=== PATIENT | male | born 1960 | race Caucasian/White ===

== ENCOUNTER 2023-09-09 12:45 | Inpatient (IN) | payer OTHER ==
[2023-09-09 14:04] VITALS: BMI 23.1
[2023-09-09] MEDS ORDERED: NALOXONE HCL (KLOXXADO) 8 MG SPRAY NS PRN (14:36)
[2023-09-09] MEDS ORDERED: guaiFENesin 600 MG TABLET.ER (FP) PO PRN (14:36)
[2023-09-09] MEDS ORDERED: LOPERAMIDE HCL 2 MG CAPSULE PO PRN (14:36)
[2023-09-09] MEDS ORDERED: BISMUTH SUBSALICYLATE 524 MG/30 ML PO PRN (14:36)
[2023-09-09] MEDS ORDERED: BENZONATATE 200 MG CAPSULE PO PRN (14:36)
[2023-09-09] MEDS ORDERED: NICOTINE POLACRILEX 2 MG GUM BUC PRN (14:36)
[2023-09-09] MEDS ORDERED: POLYETHYLENE GLYCOL (HEALTHYLAX) 3350 17 GM PACKET PO PRN (14:36)
[2023-09-09] MEDS ORDERED: IBUPROFEN 600 MG TABLET (FP) PO PRN (14:36)
[2023-09-09] MEDS ORDERED: IBUPROFEN 400 MG TABLET (FP) PO PRN (14:36)
[2023-09-09] MEDS ORDERED: MAGNESIUM HYDROX 2400MG/30ML ORAL SUSPENSION 30 ML CUP PO PRN (14:36)
[2023-09-09] MEDS ORDERED: BENZOCAINE/MENTHOL (CHLORASEPTIC ) LOZENGE MM PRN (14:36)
[2023-09-09] MEDS ORDERED: NALOXONE HCL 0.4 MG/ML VIAL IM PRN (14:36)
[2023-09-09] MEDS ORDERED: MAG HYDROX/AL HYDROX/SIMETH 30 ML UNIT-DOSE CUP PO PRN (14:36)
[2023-09-09] MEDS ORDERED: ONDANSETRON *ODT* 4 MG TABLET SL PRN (14:36)
[2023-09-09] MEDS ORDERED: ACETAMINOPHEN 325 MG TABLET (FP) PO PRN (14:36)
[2023-09-09] MEDS ORDERED: ALBUTEROL SO4 HFA INHALER IH PRN (15:59)
[2023-09-09] MEDS ORDERED: MELATONIN 5 MG TABLETS PO SCH (22:00)
[2023-09-09] MEDS: THIAMINE HCL 100 MG TABLET (FP) PO SCH (22:27)
[2023-09-10] MEDS ORDERED: MELATONIN 5 MG TABLETS PO ONE (00:58)
[2023-09-10] MEDS: PRENATAL VITAMINS W/ FOLIC ACID TABLET (FP) PO SCH (09:49)
[2023-09-10] MEDS: NICOTINE 14 MG/24 HOURS TOPICAL PATCH TD SCH (09:50)
[2023-09-10] MEDS: methaDONE HCL 40 MG DISPERSABLE TABLET PO SCH (09:51)
[2023-09-10 10:31] LABS: HEMATOCRIT 37.8 % (35.4-49); HEMOGLOBIN 12.9 GM/dL (11.7-16.9); MCH 30.5 pg (25.7-33.7); MEAN CELL VOLUME 89.8 fl (80-96); MEAN PLT VOLUME 8.5 fl (7.5-11.1); PLATELET COUNT 283 10^3/uL (134-434); RBC 4.21 M/mm3 (4.00-5.60); RDW 15.2 % (11.9-15.9); WHITE BLOOD COUNT 7.3 K/mm3 (4.0-10.0)
[2023-09-10 10:36] LABS: CHLORIDE 108 mmol/L (98-107); POTASSIUM 4.8 mmol/L (3.5-5.1); SODIUM 142 mmol/L (136-145)
[2023-09-10 10:43] LABS: ANION GAP 3 mmol/L (4-13); BLOOD UREA NITROGEN 11.9 mg/dL (7-18); CALCIUM 9.3 mg/dL (8.5-10.1); CO2 30 mmol/L (21-32); CREATININE 0.6 mg/dL (0.55-1.3); GLUCOSE,RANDOM 100 mg/dL (74-106); SGOT/AST 36 U/L (15-37)
[2023-09-10 10:44] LABS: BILIRUBIN,TOTAL 0.2 mg/dL (0.2-1)
[2023-09-10 10:45] LABS: TOT PROT 6.2 g/dl (6.4-8.2)
[2023-09-10 10:46] LABS: ALK PHOS 78 U/L (45-117)
[2023-09-10 10:47] LABS: SGPT/ALT 30 U/L (13-61)
[2023-09-10] MEDS: diazePAM 5 MG TABLET PO SCH ×3 (11:39→22:05)
[2023-09-10] MEDS: BACITRACIN 0.9 GM PACKET TP SCH ×2 (15:56→22:05)
[2023-09-10] MEDS: TOLNAFTATE 1% CREAM 15 GM TUBE TP SCH ×2 (15:56→22:05)
[2023-09-10] MEDS: THIAMINE HCL 100 MG TABLET (FP) PO SCH (22:06)
[2023-09-10] MEDS: SUVOREXANT 5 MG TABLET PO PRN (22:06)
[2023-09-11] MEDS: diazePAM 5 MG TABLET PO PRN (02:38)
[2023-09-11] MEDS: methaDONE HCL 40 MG DISPERSABLE TABLET PO SCH (05:44)
[2023-09-11] MEDS: diazePAM 5 MG TABLET PO SCH ×4 (05:44→22:24)
[2023-09-11] MEDS ORDERED: NEO/POLYMYX B SULF/DEXAMETH OPHTHALMIC 5ML BOTTLE OU ONE (10:00)
[2023-09-11] MEDS: PRENATAL VITAMINS W/ FOLIC ACID TABLET (FP) PO SCH (10:39)
[2023-09-11] MEDS: BACITRACIN 0.9 GM PACKET TP SCH ×2 (10:39→22:23)
[2023-09-11] MEDS: TOLNAFTATE 1% CREAM 15 GM TUBE TP SCH ×2 (10:39→22:23)
[2023-09-11] MEDS: NICOTINE 14 MG/24 HOURS TOPICAL PATCH TD SCH (10:39)
[2023-09-11] MEDS: SUVOREXANT 5 MG TABLET PO PRN (22:24)
[2023-09-11] MEDS: THIAMINE HCL 100 MG TABLET (FP) PO SCH (22:24)
[2023-09-12] MEDS: diazePAM 5 MG TABLET PO PRN (02:15)
[2023-09-12] MEDS: diazePAM 5 MG TABLET PO SCH ×3 (05:37→22:53)
[2023-09-12] MEDS: methaDONE HCL 40 MG DISPERSABLE TABLET PO SCH (05:37)
[2023-09-12] MEDS: NICOTINE 14 MG/24 HOURS TOPICAL PATCH TD SCH (10:22)
[2023-09-12] MEDS: PRENATAL VITAMINS W/ FOLIC ACID TABLET (FP) PO SCH (10:22)
[2023-09-12] MEDS: BACITRACIN 0.9 GM PACKET TP SCH ×2 (10:22→22:53)
[2023-09-12] MEDS: TOLNAFTATE 1% CREAM 15 GM TUBE TP SCH ×2 (10:22→22:53)
[2023-09-12] MEDS: THIAMINE HCL 100 MG TABLET (FP) PO SCH (22:53)
[2023-09-12] MEDS: SUVOREXANT 5 MG TABLET PO PRN (22:54)
[2023-09-13] MEDS: diazePAM 5 MG TABLET PO PRN (01:46)
[2023-09-13] MEDS: methaDONE HCL 40 MG DISPERSABLE TABLET PO SCH (05:27)
[2023-09-13] MEDS: diazePAM 5 MG TABLET PO SCH ×2 (05:28→17:27)
[2023-09-13] MEDS: BACITRACIN 0.9 GM PACKET TP SCH ×2 (10:09→22:23)
[2023-09-13] MEDS: NICOTINE 14 MG/24 HOURS TOPICAL PATCH TD SCH (10:10)
[2023-09-13] MEDS: PRENATAL VITAMINS W/ FOLIC ACID TABLET (FP) PO SCH (10:10)
[2023-09-13] MEDS: TOLNAFTATE 1% CREAM 15 GM TUBE TP SCH ×2 (10:10→22:24)
[2023-09-13] MEDS: SUVOREXANT 5 MG TABLET PO PRN (21:35)
[2023-09-13] MEDS: THIAMINE HCL 100 MG TABLET (FP) PO SCH (22:23)
[2023-09-14] MEDS: methaDONE HCL 40 MG DISPERSABLE TABLET PO SCH (05:42)
[2023-09-14] MEDS ORDERED: diazePAM 5 MG TABLET PO ONE (06:00)
[2023-09-14] MEDS: TOLNAFTATE 1% CREAM 15 GM TUBE TP SCH (09:55)
[2023-09-14] MEDS: NICOTINE 14 MG/24 HOURS TOPICAL PATCH TD SCH (09:55)
[2023-09-14] MEDS: PRENATAL VITAMINS W/ FOLIC ACID TABLET (FP) PO SCH (09:55)
[2023-09-14] MEDS: BACITRACIN 0.9 GM PACKET TP SCH (09:55)
[2023-09-14 12:52] VITALS: PULSE 64
[2023-09-14 15:56] LABS: BASO % 0.5 % (0-2.0); EOS % 2.4 % (0-4.5); HEMATOCRIT 37.2 % (35.4-49); HEMOGLOBIN 12.3 GM/dL (11.7-16.9); LYMPH % 27.2 % (8-40); MCH 29.8 pg (25.7-33.7); MCHC 33.1 g/dl (32.0-35.9); MEAN PLT VOLUME 9.2 fl (7.5-11.1); MONO % 9.7 % (3.8-10.2); NEUT % 60.2 % (42.8-82.8); PLATELET COUNT 326 10^3/uL (134-434); RBC 4.14 M/mm3 (4.00-5.60); RDW 15.2 % (11.9-15.9); WHITE BLOOD COUNT 9.7 K/mm3 (4.0-10.0)
[2023-09-14 16:00] LABS: POTASSIUM 3.7 mmol/L (3.5-5.1)
[2023-09-14 16:01] LABS: CALCIUM 8.9 mg/dL (8.5-10.1)
[2023-09-14 16:02] LABS: BLOOD UREA NITROGEN 18.7 mg/dL (7-18)
[2023-09-14 16:05] LABS: CREATININE 0.8 mg/dL (0.55-1.3)
[2023-09-14 17:08] VITALS: BP 105/59; RESP 15; TEMP 97.8
[2023-09-14] MEDS ORDERED: ALBUTEROL SO4 0.083% IH SOL 2.5 MG/3 ML VIAL.NEB. NEB ONE (18:04)
== END 2023-09-14 20:05 | disposition other institution (70) | DRG 773 ==
LOC: YASAS 12:45 → Y3N 15:05
PROVIDERS: ADMIT Allergy & Immunology; ATTEND Surgery
PROC: HZ2ZZZZ Detoxification Services for Substance Abuse Treatment (ICD-10-PCS; principal; 2023-09-09)
DX: F10.230 Alcohol dependence with withdrawal, uncomplicated (principal); F11.20 Opioid dependence, uncomplicated; F13.20 Sedative, hypnotic or anxiolytic dependence, uncomplicated; F12.20 Cannabis dependence, uncomplicated; F17.210 Nicotine dependence, cigarettes, uncomplicated; F31.9 Bipolar disorder, unspecified; F20.9 Schizophrenia, unspecified; F60.9 Personality disorder, unspecified; H10.9 Unspecified conjunctivitis; Z99.89 Dependence on other enabling machines and devices; Z88.6 Allergy status to analgesic agent
CPT/HCPCS: 36415; 71045-TC-FY; 80048; 80053; 80307; 82140; 85025; 85027; 86780; 87635; 87811; 93005; 93010; 94640

== ENCOUNTER 2023-09-14 20:39 | Inpatient (IN) | payer OTHER ==
[2023-09-14] MEDS ORDERED: BENZONATATE 200 MG CAPSULE PO PRN (21:42)
[2023-09-14] MEDS ORDERED: LOPERAMIDE HCL 2 MG CAPSULE PO PRN (21:42)
[2023-09-14] MEDS ORDERED: MAG HYDROX/AL HYDROX/SIMETH 30 ML UNIT-DOSE CUP PO PRN (21:42)
[2023-09-14] MEDS ORDERED: POLYETHYLENE GLYCOL (HEALTHYLAX) 3350 17 GM PACKET PO PRN (21:42)
[2023-09-14] MEDS ORDERED: MAGNESIUM HYDROX 2400MG/30ML ORAL SUSPENSION 30 ML CUP PO PRN (21:42)
[2023-09-14] MEDS ORDERED: NALOXONE HCL 0.4 MG/ML VIAL IVPUSH PRN (21:42)
[2023-09-14] MEDS ORDERED: ACETAMINOPHEN 325 MG TABLET (FP) PO PRN (21:42)
[2023-09-14] MEDS ORDERED: guaiFENesin 600 MG TABLET.ER (FP) PO PRN (21:42)
[2023-09-14] MEDS ORDERED: COLLOIDAL OATMEAL 1 BAR EACH TP PRN (21:42)
[2023-09-14] MEDS ORDERED: BENZOCAINE/MENTHOL (CHLORASEPTIC ) LOZENGE MM PRN (21:42)
[2023-09-14] MEDS ORDERED: NALOXONE HCL (KLOXXADO) 8 MG SPRAY NS PRN (21:42)
[2023-09-14] MEDS ORDERED: P-EPHED 60MG/TRIPROLIDI 2.5MG TABLET PO PRN (21:42)
[2023-09-14] MEDS: THIAMINE HCL 100 MG TABLET (FP) PO SCH (22:05)
[2023-09-14] MEDS: MELATONIN 5 MG TABLETS PO PRN (22:06)
[2023-09-15] MEDS: PRENATAL VITAMINS W/ FOLIC ACID TABLET (FP) PO SCH (09:24)
[2023-09-15] MEDS ORDERED: methaDONE HCL 40 MG DISPERSABLE TABLET PO SCH (10:15)
[2023-09-15] MEDS: THIAMINE HCL 100 MG TABLET (FP) PO SCH (21:24)
[2023-09-15] MEDS: MELATONIN 5 MG TABLETS PO PRN (21:25)
[2023-09-16] MEDS ORDERED: methaDONE HCL 40 MG DISPERSABLE TABLET PO SCH (06:00)
[2023-09-16] MEDS: PRENATAL VITAMINS W/ FOLIC ACID TABLET (FP) PO SCH (10:11)
[2023-09-16] MEDS: LACTULOSE 20 GM/30 ML UDC (FOR ORAL USE ONLY) PO SCH ×2 (13:29→21:18)
[2023-09-16] MEDS: THIAMINE HCL 100 MG TABLET (FP) PO SCH (21:18)
[2023-09-16] MEDS: MELATONIN 5 MG TABLETS PO PRN (21:18)
[2023-09-17] MEDS: LACTULOSE 20 GM/30 ML UDC (FOR ORAL USE ONLY) PO SCH ×3 (06:33→21:21)
[2023-09-17] MEDS: methaDONE HCL 40 MG DISPERSABLE TABLET PO SCH (06:34)
[2023-09-17] MEDS: PRENATAL VITAMINS W/ FOLIC ACID TABLET (FP) PO SCH (10:05)
[2023-09-17 10:30] LABS: INR 1.08 (0.83-1.09); PROTHROMBIN TIME (PATIENT) 12.5 SEC (9.7-13.0)
[2023-09-17] MEDS: ALBUTEROL SO4 HFA INHALER IH PRN (12:19)
[2023-09-17] MEDS: THIAMINE HCL 100 MG TABLET (FP) PO SCH (21:20)
[2023-09-17] MEDS: MELATONIN 5 MG TABLETS PO PRN (21:20)
[2023-09-18] MEDS: LACTULOSE 20 GM/30 ML UDC (FOR ORAL USE ONLY) PO SCH ×3 (06:24→21:10)
[2023-09-18] MEDS: methaDONE HCL 40 MG DISPERSABLE TABLET PO SCH (06:24)
[2023-09-18] MEDS: PRENATAL VITAMINS W/ FOLIC ACID TABLET (FP) PO SCH (10:11)
[2023-09-18] MEDS: THIAMINE HCL 100 MG TABLET (FP) PO SCH (21:09)
[2023-09-18] MEDS: RIFAXIMIN 550 MG TABLET PO SCH (21:10)
[2023-09-18] MEDS ORDERED: SUVOREXANT 5 MG TABLET PO PRN (22:00)
[2023-09-19] MEDS: methaDONE HCL 40 MG DISPERSABLE TABLET PO SCH (06:20)
[2023-09-19] MEDS: LACTULOSE 20 GM/30 ML UDC (FOR ORAL USE ONLY) PO SCH ×3 (06:22→21:02)
[2023-09-19] MEDS: RIFAXIMIN 550 MG TABLET PO SCH ×2 (09:35→21:02)
[2023-09-19] MEDS: PRENATAL VITAMINS W/ FOLIC ACID TABLET (FP) PO SCH (09:35)
[2023-09-19] MEDS: THIAMINE HCL 100 MG TABLET (FP) PO SCH (21:02)
[2023-09-20] MEDS: LACTULOSE 20 GM/30 ML UDC (FOR ORAL USE ONLY) PO SCH ×3 (06:28→21:42)
[2023-09-20] MEDS: methaDONE HCL 40 MG DISPERSABLE TABLET PO SCH (06:29)
[2023-09-20] MEDS: PRENATAL VITAMINS W/ FOLIC ACID TABLET (FP) PO SCH (10:06)
[2023-09-20] MEDS: RIFAXIMIN 550 MG TABLET PO SCH ×2 (10:06→21:42)
[2023-09-20] MEDS: THIAMINE HCL 100 MG TABLET (FP) PO SCH (21:42)
[2023-09-21] MEDS: LACTULOSE 20 GM/30 ML UDC (FOR ORAL USE ONLY) PO SCH ×3 (06:13→21:19)
[2023-09-21] MEDS: methaDONE HCL 40 MG DISPERSABLE TABLET PO SCH (06:13)
[2023-09-21] MEDS: RIFAXIMIN 550 MG TABLET PO SCH ×2 (09:18→21:20)
[2023-09-21] MEDS: PRENATAL VITAMINS W/ FOLIC ACID TABLET (FP) PO SCH (09:18)
[2023-09-21] MEDS: THIAMINE HCL 100 MG TABLET (FP) PO SCH (21:20)
[2023-09-21] MEDS: SALICYLIC ACID (WART REMOVER) 9 ML LIQUID TP PRN (21:21)
[2023-09-22] MEDS: BACLOFEN 10 MG TABLET (FP) PO PRN ×2 (03:34→21:35)
[2023-09-22] MEDS ORDERED: methaDONE HCL 40 MG DISPERSABLE TABLET PO SCH (06:00)
[2023-09-22] MEDS: methaDONE 40 MG, methaDONE 20 MG PO SCH (06:25)
[2023-09-22] MEDS: LACTULOSE 20 GM/30 ML UDC (FOR ORAL USE ONLY) PO SCH ×3 (06:26→21:36)
[2023-09-22] MEDS: PRENATAL VITAMINS W/ FOLIC ACID TABLET (FP) PO SCH (09:18)
[2023-09-22] MEDS: RIFAXIMIN 550 MG TABLET PO SCH ×2 (09:19→21:36)
[2023-09-22] MEDS: THIAMINE HCL 100 MG TABLET (FP) PO SCH (21:36)
[2023-09-23] MEDS: SUVOREXANT 5 MG TABLET PO PRN ×2 (00:51→21:56)
[2023-09-23] MEDS: LACTULOSE 20 GM/30 ML UDC (FOR ORAL USE ONLY) PO SCH ×3 (06:20→21:56)
[2023-09-23] MEDS: methaDONE 40 MG, methaDONE 20 MG PO SCH (06:20)
[2023-09-23] MEDS: PRENATAL VITAMINS W/ FOLIC ACID TABLET (FP) PO SCH (09:49)
[2023-09-23] MEDS: RIFAXIMIN 550 MG TABLET PO SCH ×2 (09:49→21:56)
[2023-09-23] MEDS: THIAMINE HCL 100 MG TABLET (FP) PO SCH (21:56)
[2023-09-24] MEDS: LACTULOSE 20 GM/30 ML UDC (FOR ORAL USE ONLY) PO SCH ×3 (06:14→21:33)
[2023-09-24] MEDS: methaDONE 40 MG, methaDONE 20 MG PO SCH (06:14)
[2023-09-24] MEDS: PRENATAL VITAMINS W/ FOLIC ACID TABLET (FP) PO SCH (10:23)
[2023-09-24] MEDS: RIFAXIMIN 550 MG TABLET PO SCH ×2 (10:23→21:32)
[2023-09-24] MEDS: THIAMINE HCL 100 MG TABLET (FP) PO SCH (21:32)
[2023-09-24] MEDS: SUVOREXANT 10 MG TABLET PO PRN (21:34)
[2023-09-25] MEDS: methaDONE 40 MG, methaDONE 20 MG PO SCH (06:31)
[2023-09-25] MEDS: LACTULOSE 20 GM/30 ML UDC (FOR ORAL USE ONLY) PO SCH ×3 (06:33→21:09)
[2023-09-25] MEDS: RIFAXIMIN 550 MG TABLET PO SCH ×2 (10:10→21:09)
[2023-09-25] MEDS: PRENATAL VITAMINS W/ FOLIC ACID TABLET (FP) PO SCH (10:10)
[2023-09-25] MEDS: SALICYLIC ACID (WART REMOVER) 9 ML LIQUID TP PRN (10:11)
[2023-09-25] MEDS: LIDOCAINE 4% PATCH TP SCH (11:12)
[2023-09-25] MEDS: THIAMINE HCL 100 MG TABLET (FP) PO SCH (21:09)
[2023-09-25] MEDS: LIDOCAINE PATCH REMOVAL MC SCH (21:10)
[2023-09-25] MEDS: SUVOREXANT 10 MG TABLET PO PRN (21:11)
[2023-09-26] MEDS: LACTULOSE 20 GM/30 ML UDC (FOR ORAL USE ONLY) PO SCH ×3 (06:26→21:20)
[2023-09-26] MEDS: methaDONE 40 MG, methaDONE 20 MG PO SCH (06:26)
[2023-09-26] MEDS: PRENATAL VITAMINS W/ FOLIC ACID TABLET (FP) PO SCH (09:47)
[2023-09-26] MEDS: LIDOCAINE 4% PATCH TP SCH (09:47)
[2023-09-26] MEDS: RIFAXIMIN 550 MG TABLET PO SCH ×2 (09:47→21:21)
[2023-09-26] MEDS: LIDOCAINE PATCH REMOVAL MC SCH (21:20)
[2023-09-26] MEDS: THIAMINE HCL 100 MG TABLET (FP) PO SCH (21:20)
[2023-09-26] MEDS: SUVOREXANT 10 MG TABLET PO PRN (21:21)
[2023-09-27] MEDS: LACTULOSE 20 GM/30 ML UDC (FOR ORAL USE ONLY) PO SCH ×3 (06:13→21:09)
[2023-09-27] MEDS: methaDONE 40 MG, methaDONE 20 MG PO SCH (06:15)
[2023-09-27] MEDS: RIFAXIMIN 550 MG TABLET PO SCH ×2 (09:27→21:09)
[2023-09-27] MEDS: PRENATAL VITAMINS W/ FOLIC ACID TABLET (FP) PO SCH (09:27)
[2023-09-27] MEDS: LIDOCAINE 4% PATCH TP SCH (09:27)
[2023-09-27] MEDS: LIDOCAINE PATCH REMOVAL MC SCH (21:09)
[2023-09-27] MEDS: THIAMINE HCL 100 MG TABLET (FP) PO SCH (21:09)
[2023-09-27] MEDS: SUVOREXANT 10 MG TABLET PO PRN (21:10)
[2023-09-28] MEDS: LACTULOSE 20 GM/30 ML UDC (FOR ORAL USE ONLY) PO SCH ×3 (06:07→21:12)
[2023-09-28] MEDS: methaDONE 40 MG, methaDONE 20 MG PO SCH (06:07)
[2023-09-28] MEDS: PRENATAL VITAMINS W/ FOLIC ACID TABLET (FP) PO SCH (09:46)
[2023-09-28] MEDS: LIDOCAINE 4% PATCH TP SCH (09:46)
[2023-09-28] MEDS: RIFAXIMIN 550 MG TABLET PO SCH ×2 (09:46→21:12)
[2023-09-28] MEDS ORDERED: methaDONE HCL 10 MG TABLET PO ONE (12:59)
[2023-09-28] MEDS ORDERED: methaDONE HCL 40 MG DISPERSABLE TABLET PO SCH (13:00)
[2023-09-28] MEDS: THIAMINE HCL 100 MG TABLET (FP) PO SCH (21:12)
[2023-09-28] MEDS: LIDOCAINE PATCH REMOVAL MC SCH (21:12)
[2023-09-28] MEDS: SUVOREXANT 10 MG TABLET PO PRN (21:13)
[2023-09-29] MEDS: LACTULOSE 20 GM/30 ML UDC (FOR ORAL USE ONLY) PO SCH ×3 (06:12→21:13)
[2023-09-29] MEDS: methaDONE 40 MG, methaDONE 30 MG PO SCH (06:13)
[2023-09-29] MEDS: LIDOCAINE 4% PATCH TP SCH (09:47)
[2023-09-29] MEDS: RIFAXIMIN 550 MG TABLET PO SCH ×2 (09:47→21:13)
[2023-09-29] MEDS: PRENATAL VITAMINS W/ FOLIC ACID TABLET (FP) PO SCH (09:47)
[2023-09-29] MEDS: SUVOREXANT 10 MG TABLET PO PRN (21:13)
[2023-09-29] MEDS: THIAMINE HCL 100 MG TABLET (FP) PO SCH (21:13)
[2023-09-29] MEDS: LIDOCAINE PATCH REMOVAL MC SCH (21:14)
[2023-09-30] MEDS: LACTULOSE 20 GM/30 ML UDC (FOR ORAL USE ONLY) PO SCH ×3 (06:09→21:15)
[2023-09-30] MEDS: methaDONE 40 MG, methaDONE 30 MG PO SCH (06:09)
[2023-09-30] MEDS: RIFAXIMIN 550 MG TABLET PO SCH ×2 (09:51→21:15)
[2023-09-30] MEDS: LIDOCAINE 4% PATCH TP SCH (09:51)
[2023-09-30] MEDS: PRENATAL VITAMINS W/ FOLIC ACID TABLET (FP) PO SCH (09:51)
[2023-09-30] MEDS: LIDOCAINE PATCH REMOVAL MC SCH (21:15)
[2023-09-30] MEDS: THIAMINE HCL 100 MG TABLET (FP) PO SCH (21:15)
[2023-09-30] MEDS: SUVOREXANT 10 MG TABLET PO PRN (21:15)
[2023-10-01] MEDS: methaDONE 40 MG, methaDONE 30 MG PO SCH (06:14)
[2023-10-01] MEDS: LACTULOSE 20 GM/30 ML UDC (FOR ORAL USE ONLY) PO SCH ×3 (06:15→21:16)
[2023-10-01] MEDS: PRENATAL VITAMINS W/ FOLIC ACID TABLET (FP) PO SCH (09:34)
[2023-10-01] MEDS: RIFAXIMIN 550 MG TABLET PO SCH ×2 (09:34→21:16)
[2023-10-01] MEDS: LIDOCAINE 4% PATCH TP SCH (09:34)
[2023-10-01] MEDS: THIAMINE HCL 100 MG TABLET (FP) PO SCH (21:16)
[2023-10-01] MEDS: SUVOREXANT 10 MG TABLET PO PRN (21:16)
[2023-10-01] MEDS: LIDOCAINE PATCH REMOVAL MC SCH (21:16)
[2023-10-02] MEDS: methaDONE 40 MG, methaDONE 30 MG PO SCH (06:23)
[2023-10-02] MEDS: LACTULOSE 20 GM/30 ML UDC (FOR ORAL USE ONLY) PO SCH ×3 (06:23→21:16)
[2023-10-02] MEDS: LIDOCAINE 4% PATCH TP SCH (10:11)
[2023-10-02] MEDS: PRENATAL VITAMINS W/ FOLIC ACID TABLET (FP) PO SCH (10:11)
[2023-10-02] MEDS: RIFAXIMIN 550 MG TABLET PO SCH ×2 (10:11→21:16)
[2023-10-02] MEDS: SUVOREXANT 10 MG TABLET PO PRN (21:16)
[2023-10-02] MEDS: THIAMINE HCL 100 MG TABLET (FP) PO SCH (21:16)
[2023-10-02] MEDS: LIDOCAINE PATCH REMOVAL MC SCH (21:16)
[2023-10-03] MEDS: methaDONE 40 MG, methaDONE 30 MG PO SCH (06:30)
[2023-10-03] MEDS: LACTULOSE 20 GM/30 ML UDC (FOR ORAL USE ONLY) PO SCH ×3 (06:30→21:35)
[2023-10-03] MEDS: LIDOCAINE 4% PATCH TP SCH (10:40)
[2023-10-03] MEDS: PRENATAL VITAMINS W/ FOLIC ACID TABLET (FP) PO SCH (10:40)
[2023-10-03] MEDS: RIFAXIMIN 550 MG TABLET PO SCH ×2 (10:40→21:35)
[2023-10-03] MEDS: LIDOCAINE PATCH REMOVAL MC SCH (21:32)
[2023-10-03] MEDS: SUVOREXANT 10 MG TABLET PO PRN (21:34)
[2023-10-03] MEDS: THIAMINE HCL 100 MG TABLET (FP) PO SCH (21:35)
[2023-10-04] MEDS: methaDONE 40 MG, methaDONE 30 MG PO SCH (06:13)
[2023-10-04] MEDS: LACTULOSE 20 GM/30 ML UDC (FOR ORAL USE ONLY) PO SCH ×3 (06:13→21:27)
[2023-10-04] MEDS: PRENATAL VITAMINS W/ FOLIC ACID TABLET (FP) PO SCH (09:01)
[2023-10-04] MEDS: RIFAXIMIN 550 MG TABLET PO SCH ×2 (09:01→21:27)
[2023-10-04] MEDS: LIDOCAINE 4% PATCH TP SCH (09:02)
[2023-10-04] MEDS: LIDOCAINE PATCH REMOVAL MC SCH (21:26)
[2023-10-04] MEDS: THIAMINE HCL 100 MG TABLET (FP) PO SCH (21:27)
[2023-10-04] MEDS: SUVOREXANT 10 MG TABLET PO PRN (21:28)
[2023-10-05] MEDS: methaDONE 40 MG, methaDONE 30 MG PO SCH (06:43)
[2023-10-05] MEDS: LACTULOSE 20 GM/30 ML UDC (FOR ORAL USE ONLY) PO SCH ×3 (06:46→21:10)
[2023-10-05] MEDS: PRENATAL VITAMINS W/ FOLIC ACID TABLET (FP) PO SCH (09:18)
[2023-10-05] MEDS: RIFAXIMIN 550 MG TABLET PO SCH ×2 (09:19→21:10)
[2023-10-05] MEDS: LIDOCAINE 4% PATCH TP SCH (09:20)
[2023-10-05] MEDS: LIDOCAINE PATCH REMOVAL MC SCH (21:10)
[2023-10-05] MEDS: THIAMINE HCL 100 MG TABLET (FP) PO SCH (21:10)
[2023-10-05] MEDS: SUVOREXANT 10 MG TABLET PO PRN (21:11)
[2023-10-06] MEDS: methaDONE 40 MG, methaDONE 30 MG PO SCH (06:17)
[2023-10-06] MEDS: LACTULOSE 20 GM/30 ML UDC (FOR ORAL USE ONLY) PO SCH ×3 (06:17→21:11)
[2023-10-06] MEDS: RIFAXIMIN 550 MG TABLET PO SCH ×2 (10:02→21:11)
[2023-10-06] MEDS: PRENATAL VITAMINS W/ FOLIC ACID TABLET (FP) PO SCH (10:02)
[2023-10-06] MEDS: LIDOCAINE 4% PATCH TP SCH (10:03)
[2023-10-06] MEDS: THIAMINE HCL 100 MG TABLET (FP) PO SCH (21:11)
[2023-10-06] MEDS: LIDOCAINE PATCH REMOVAL MC SCH (21:11)
[2023-10-06] MEDS ORDERED: SUVOREXANT 10 MG TABLET PO PRN (22:00)
[2023-10-07] MEDS: methaDONE 40 MG, methaDONE 30 MG PO SCH (06:09)
[2023-10-07] MEDS: LACTULOSE 20 GM/30 ML UDC (FOR ORAL USE ONLY) PO SCH ×3 (06:09→21:10)
[2023-10-07] MEDS: PRENATAL VITAMINS W/ FOLIC ACID TABLET (FP) PO SCH (09:41)
[2023-10-07] MEDS: RIFAXIMIN 550 MG TABLET PO SCH ×2 (09:41→21:10)
[2023-10-07] MEDS: LIDOCAINE 4% PATCH TP SCH (09:42)
[2023-10-07] MEDS: THIAMINE HCL 100 MG TABLET (FP) PO SCH (21:10)
[2023-10-07] MEDS: LIDOCAINE PATCH REMOVAL MC SCH (21:10)
[2023-10-08] MEDS: methaDONE 40 MG, methaDONE 30 MG PO SCH (06:12)
[2023-10-08] MEDS: LACTULOSE 20 GM/30 ML UDC (FOR ORAL USE ONLY) PO SCH ×3 (06:13→21:12)
[2023-10-08] MEDS: RIFAXIMIN 550 MG TABLET PO SCH ×2 (10:04→21:12)
[2023-10-08] MEDS: PRENATAL VITAMINS W/ FOLIC ACID TABLET (FP) PO SCH (10:04)
[2023-10-08] MEDS: LIDOCAINE 4% PATCH TP SCH (10:05)
[2023-10-08] MEDS ORDERED: LIDOCAINE 4% PATCH TP PRN (15:49)
[2023-10-08] MEDS ORDERED: ACETAMINOPHEN 325 MG TABLET (FP) PO ONE (19:03)
[2023-10-08] MEDS: THIAMINE HCL 100 MG TABLET (FP) PO SCH (21:12)
[2023-10-08] MEDS: LIDOCAINE PATCH REMOVAL MC SCH (21:12)
[2023-10-09] MEDS: methaDONE 40 MG, methaDONE 30 MG PO SCH (06:11)
[2023-10-09] MEDS: LACTULOSE 20 GM/30 ML UDC (FOR ORAL USE ONLY) PO SCH ×3 (06:12→21:36)
[2023-10-09] MEDS: PRENATAL VITAMINS W/ FOLIC ACID TABLET (FP) PO SCH (09:37)
[2023-10-09] MEDS: RIFAXIMIN 550 MG TABLET PO SCH ×2 (09:37→21:36)
[2023-10-09] MEDS: SUVOREXANT 10 MG TABLET PO PRN (21:35)
[2023-10-09] MEDS: THIAMINE HCL 100 MG TABLET (FP) PO SCH (21:36)
[2023-10-09] MEDS: ALBUTEROL SO4 HFA INHALER IH PRN (21:42)
[2023-10-09] MEDS: LIDOCAINE PATCH REMOVAL MC SCH (21:42)
[2023-10-10] MEDS: methaDONE 40 MG, methaDONE 30 MG PO SCH (06:17)
[2023-10-10] MEDS: LACTULOSE 20 GM/30 ML UDC (FOR ORAL USE ONLY) PO SCH ×3 (06:58→21:28)
[2023-10-10] MEDS: PRENATAL VITAMINS W/ FOLIC ACID TABLET (FP) PO SCH (09:21)
[2023-10-10] MEDS: ALBUTEROL SO4 HFA INHALER IH PRN (14:48)
[2023-10-10] MEDS: LIDOCAINE PATCH REMOVAL MC SCH (21:28)
[2023-10-10] MEDS: SUVOREXANT 10 MG TABLET PO PRN (21:28)
[2023-10-10] MEDS: THIAMINE HCL 100 MG TABLET (FP) PO SCH (21:28)
[2023-10-11] MEDS: methaDONE 40 MG, methaDONE 30 MG PO SCH (05:59)
[2023-10-11] MEDS: LACTULOSE 20 GM/30 ML UDC (FOR ORAL USE ONLY) PO SCH ×3 (05:59→21:25)
[2023-10-11] MEDS: PRENATAL VITAMINS W/ FOLIC ACID TABLET (FP) PO SCH (10:12)
[2023-10-11] MEDS: LIDOCAINE PATCH REMOVAL MC SCH (21:24)
[2023-10-11] MEDS: THIAMINE HCL 100 MG TABLET (FP) PO SCH (21:24)
[2023-10-11] MEDS: SUVOREXANT 10 MG TABLET PO PRN (21:26)
[2023-10-12] MEDS: LACTULOSE 20 GM/30 ML UDC (FOR ORAL USE ONLY) PO SCH (06:15)
[2023-10-12] MEDS: methaDONE 40 MG, methaDONE 30 MG PO SCH (06:16)
[2023-10-12 06:48] VITALS: BP 147/83; PULSE 61; RESP 16; TEMP 98.2
[2023-10-12] MEDS: PRENATAL VITAMINS W/ FOLIC ACID TABLET (FP) PO SCH (09:12)
== END 2023-10-12 09:18 | disposition home or self-care (01) | DRG 772 ==
LOC: YASAS 20:39 → Y3E 20:40
PROVIDERS: ADMIT Allergy & Immunology; ATTEND Psychiatry & Neurology Pain Medicine
PROC: HZ42ZZZ Group Counseling for Substance Abuse Treatment, Cognitive-Behavioral (ICD-10-PCS; principal; 2023-09-14)
DX: F11.20 Opioid dependence, uncomplicated (principal); F13.20 Sedative, hypnotic or anxiolytic dependence, uncomplicated; F17.210 Nicotine dependence, cigarettes, uncomplicated; F25.9 Schizoaffective disorder, unspecified; F31.9 Bipolar disorder, unspecified; F60.9 Personality disorder, unspecified; F41.9 Anxiety disorder, unspecified; F32.A Depression, unspecified; E72.20 Disorder of urea cycle metabolism, unspecified; G47.00 Insomnia, unspecified; I10 Essential (primary) hypertension; J45.909 Unspecified asthma, uncomplicated; L84 Corns and callosities; R00.1 Bradycardia, unspecified
CPT/HCPCS: 36415; 82140; 82652; 82962; 83735; 85610; 93005; 93010; J0475

== ENCOUNTER 2023-11-03 11:26 | Inpatient (IN) | payer OTHER ==
[2023-11-03 12:06] VITALS: BMI 21.9
[2023-11-03] MEDS ORDERED: guaiFENesin 600 MG TABLET.ER (FP) PO PRN (12:57)
[2023-11-03] MEDS ORDERED: MAG HYDROX/AL HYDROX/SIMETH 30 ML UNIT-DOSE CUP PO PRN (12:57)
[2023-11-03] MEDS ORDERED: BENZONATATE 200 MG CAPSULE PO PRN (12:57)
[2023-11-03] MEDS ORDERED: LOPERAMIDE HCL 2 MG CAPSULE PO PRN (12:57)
[2023-11-03] MEDS ORDERED: ONDANSETRON *ODT* 4 MG TABLET SL PRN (12:57)
[2023-11-03] MEDS ORDERED: NALOXONE HCL (KLOXXADO) 8 MG SPRAY NS PRN (12:57)
[2023-11-03] MEDS ORDERED: ACETAMINOPHEN 325 MG TABLET (FP) PO PRN (12:57)
[2023-11-03] MEDS ORDERED: IBUPROFEN 400 MG TABLET (FP) PO PRN (12:57)
[2023-11-03] MEDS ORDERED: NALOXONE HCL 0.4 MG/ML VIAL IM PRN (12:57)
[2023-11-03] MEDS ORDERED: BENZOCAINE/MENTHOL (CHLORASEPTIC ) LOZENGE MM PRN (12:57)
[2023-11-03] MEDS ORDERED: POLYETHYLENE GLYCOL (HEALTHYLAX) 3350 17 GM PACKET PO PRN (12:57)
[2023-11-03] MEDS ORDERED: MAGNESIUM HYDROX 2400MG/30ML ORAL SUSPENSION 30 ML CUP PO PRN (12:57)
[2023-11-03] MEDS ORDERED: LORazepam 1 MG TABLET ONE (13:26)
[2023-11-03] MEDS: LORazepam 2 MG TABLET PO ONE ×2 (13:31→14:01)
[2023-11-03] MEDS ORDERED: LORazepam 2 MG TABLET PO SCH (17:00)
[2023-11-03] MEDS: LORazepam 1 MG TABLET PO PRN (20:11)
[2023-11-03] MEDS ORDERED: ALBUTEROL SO4 HFA INHALER IH PRN (20:28)
[2023-11-03] MEDS ORDERED: P-EPHED 60MG/TRIPROLIDI 2.5MG TABLET PO PRN (21:51)
[2023-11-03] MEDS: MELATONIN 5 MG TABLETS PO SCH (22:08)
[2023-11-03] MEDS: THIAMINE HCL 100 MG TABLET (FP) PO SCH (22:08)
[2023-11-03] MEDS: LORazepam 1 MG TABLET PO SCH (22:08)
[2023-11-03] MEDS ORDERED: amLODIPine BESYLATE 5 MG TABLET (FP) PO ONE (22:34)
[2023-11-04] MEDS: LORazepam 1 MG TABLET PO PRN (01:14)
[2023-11-04] MEDS: LORazepam 1 MG TABLET PO SCH ×4 (05:22→23:00)
[2023-11-04] MEDS: methaDONE HCL 40 MG DISPERSABLE TABLET PO SCH (06:54)
[2023-11-04] MEDS: PRENATAL VITAMINS W/ FOLIC ACID TABLET (FP) PO SCH (10:26)
[2023-11-04 12:47] LABS: HEMATOCRIT 40.9 % (35.4-49); HEMOGLOBIN 13.3 GM/dL (11.7-16.9); MCH 30.3 pg (25.7-33.7); MCHC 32.5 g/dl (32.0-35.9); MEAN CELL VOLUME 93.2 fl (80-96); MEAN PLT VOLUME 9.1 fl (7.5-11.1); PLATELET COUNT 262 10^3/uL (134-434); RBC 4.39 M/mm3 (4.00-5.60); RDW 14.6 % (11.9-15.9); WHITE BLOOD COUNT 7.6 K/mm3 (4.0-10.0)
[2023-11-04] MEDS ORDERED: cloNIDine HCL 0.1 MG TABLET PO ONE (15:44)
[2023-11-04 21:39] LABS: POTASSIUM 4.8 mmol/L (3.5-5.1)
[2023-11-04 21:41] LABS: ALBUMIN 3.9 g/dl (3.4-5.0); BLOOD UREA NITROGEN 9.9 mg/dL (7-18); CALCIUM 10.2 mg/dL (8.5-10.1)
[2023-11-04 21:44] LABS: CREATININE 0.8 mg/dL (0.55-1.3)
[2023-11-04 21:46] LABS: BILIRUBIN,TOTAL 0.2 mg/dL (0.2-1); TOT PROT 7.6 g/dl (6.4-8.2)
[2023-11-04] MEDS: THIAMINE HCL 100 MG TABLET (FP) PO SCH (23:00)
[2023-11-04] MEDS: MELATONIN 5 MG TABLETS PO SCH (23:00)
[2023-11-04] MEDS: P-EPHED 60MG/TRIPROLIDI 2.5MG TABLET PO PRN (23:02)
[2023-11-05] MEDS: LORazepam 1 MG TABLET PO SCH ×4 (05:22→22:38)
[2023-11-05] MEDS: methaDONE HCL 40 MG DISPERSABLE TABLET PO SCH (05:22)
[2023-11-05] MEDS: PRENATAL VITAMINS W/ FOLIC ACID TABLET (FP) PO SCH (10:27)
[2023-11-05] MEDS: P-EPHED 60MG/TRIPROLIDI 2.5MG TABLET PO PRN ×2 (10:29→17:51)
[2023-11-05] MEDS: THIAMINE HCL 100 MG TABLET (FP) PO SCH (22:41)
[2023-11-05] MEDS: MELATONIN 5 MG TABLETS PO SCH (22:41)
[2023-11-06] MEDS ORDERED: LORazepam 0.5 MG TABLET PO PRN
[2023-11-06] MEDS: methaDONE HCL 40 MG DISPERSABLE TABLET PO SCH (05:40)
[2023-11-06] MEDS: LORazepam 0.5 MG TABLET PO SCH ×4 (05:40→22:19)
[2023-11-06 08:36] LABS: POTASSIUM 3.8 mmol/L (3.5-5.1)
[2023-11-06 08:43] LABS: CALCIUM 8.9 mg/dL (8.5-10.1)
[2023-11-06 08:46] LABS: CREATININE 0.7 mg/dL (0.55-1.3)
[2023-11-06 08:47] LABS: BILIRUBIN,TOTAL 0.2 mg/dL (0.2-1)
[2023-11-06 08:49] LABS: ALBUMIN 2.8 g/dl (3.4-5.0)
[2023-11-06] MEDS: PRENATAL VITAMINS W/ FOLIC ACID TABLET (FP) PO SCH (10:48)
[2023-11-06] MEDS: THIAMINE HCL 100 MG TABLET (FP) PO SCH (22:19)
[2023-11-06] MEDS: MELATONIN 5 MG TABLETS PO SCH (22:19)
[2023-11-07] MEDS ORDERED: LORazepam 0.5 MG TABLET PO ONE (05:00)
[2023-11-07] MEDS: methaDONE HCL 40 MG DISPERSABLE TABLET PO SCH (05:14)
[2023-11-07 09:46] VITALS: BP 133/71; PULSE 63; RESP 16; TEMP 98
[2023-11-07] MEDS: PRENATAL VITAMINS W/ FOLIC ACID TABLET (FP) PO SCH (10:27)
== END 2023-11-07 11:42 | disposition other institution (70) | DRG 773 ==
LOC: YASAS 11:26 → Y3N 13:10
PROVIDERS: ADMIT Allergy & Immunology; ATTEND Surgery
PROC: HZ2ZZZZ Detoxification Services for Substance Abuse Treatment (ICD-10-PCS; principal; 2023-11-03)
DX: F10.230 Alcohol dependence with withdrawal, uncomplicated (principal); F11.20 Opioid dependence, uncomplicated; F31.9 Bipolar disorder, unspecified; F20.9 Schizophrenia, unspecified; F60.9 Personality disorder, unspecified; F41.9 Anxiety disorder, unspecified; I10 Essential (primary) hypertension; J45.909 Unspecified asthma, uncomplicated; R09.81 Nasal congestion; Z87.891 Personal history of nicotine dependence; Z99.89 Dependence on other enabling machines and devices; S91.201A Unspecified open wound of right great toe with damage to nail, initial encounter; X58.XXXA Exposure to other specified factors, initial encounter; Y93.9 Activity, unspecified; Y92.9 Unspecified place or not applicable; Y99.9 Unspecified external cause status
CPT/HCPCS: 0241U-QW; 36415; 80053; 80307; 83036; 85027; 86780; 87635; 87811; 93005; 93010

== ENCOUNTER 2024-04-07 13:17 | Inpatient (IN) | payer OTHER ==
[2024-04-07 13:49] VITALS: BMI 20.5
[2024-04-07] MEDS ORDERED: ALBUTEROL SO4 HFA INHALER IH PRN (15:22)
[2024-04-07] MEDS ORDERED: BENZOCAINE/MENTHOL (CHLORASEPTIC ) LOZENGE MM PRN (15:23)
[2024-04-07] MEDS ORDERED: MAGNESIUM HYDROX 2400MG/30ML ORAL SUSPENSION 30 ML CUP PO PRN (15:23)
[2024-04-07] MEDS ORDERED: POLYETHYLENE GLYCOL (HEALTHYLAX) 3350 17 GM PACKET PO PRN (15:23)
[2024-04-07] MEDS ORDERED: guaiFENesin 600 MG TABLET.ER (FP) PO PRN (15:23)
[2024-04-07] MEDS ORDERED: MAG HYDROX/AL HYDROX/SIMETH 30 ML UNIT-DOSE CUP PO PRN (15:23)
[2024-04-07] MEDS ORDERED: BENZONATATE 200 MG CAPSULE PO PRN (15:23)
[2024-04-07] MEDS ORDERED: NALOXONE (NARCAN) HCL 4 MG/0.1 ML SPRAY NS PRN (15:23)
[2024-04-07] MEDS ORDERED: NALOXONE HCL 0.4 MG/ML VIAL IM PRN (15:23)
[2024-04-07] MEDS: THIAMINE 100 MG TABLET PO SCH (22:16)
[2024-04-07] MEDS: MELATONIN 5 MG TABLETS PO SCH (22:18)
[2024-04-08] MEDS ORDERED: methaDONE HCL 10 MG TABLET PO SCH (08:30)
[2024-04-08] MEDS: methaDONE 80 MG, methaDONE 10 MG PO SCH (08:49)
[2024-04-08 10:30] LABS: HEMATOCRIT 38.4 % (35.4-49); HEMOGLOBIN 13.1 GM/dL (11.7-16.9); MCH 30.1 pg (25.7-33.7); MEAN CELL VOLUME 88.5 fl (80-96); MEAN PLT VOLUME 8.3 fl (7.5-11.1); PLATELET COUNT 339 10^3/uL (134-434); RBC 4.35 M/mm3 (4.00-5.60); RDW 14.2 % (11.9-15.9); WHITE BLOOD COUNT 6.2 K/mm3 (4.0-10.0)
[2024-04-08] MEDS: PRENATAL VITAMINS W/ FOLIC ACID TABLET (FP) PO SCH (10:31)
[2024-04-08 10:33] LABS: POTASSIUM 3.7 mmol/L (3.5-5.1)
[2024-04-08 10:50] LABS: ALBUMIN 2.8 g/dl (3.4-5.0); BLOOD UREA NITROGEN 11.5 mg/dL (7-18); CALCIUM 8.8 mg/dL (8.5-10.1)
[2024-04-08 10:53] LABS: CREATININE 0.6 mg/dL (0.55-1.3)
[2024-04-08 10:54] LABS: BILIRUBIN,TOTAL 0.2 mg/dL (0.2-1)
[2024-04-08 10:55] LABS: TOT PROT 6.4 g/dl (6.4-8.2)
[2024-04-08 13:19] LABS: PH,URINE 7.5 (5.0-8.0); URINE APPEARANCE CLEAR; URINE BILIRUBIN NEGATIVE (NEGATIVE); URINE COLOR YELLOW; URINE GLUCOSE (UA) NEGATIVE (NEGATIVE); URINE KETONE NEGATIVE (NEGATIVE); URINE LEUK ESTERASE NEGATIVE (NEGATIVE); URINE NITRITE NEGATIVE (NEGATIVE); URINE PROTEIN NEGATIVE (NEGATIVE)
[2024-04-08] MEDS: amLODIPine BESYLATE 5 MG TABLET (FP) PO SCH (17:29)
[2024-04-08] MEDS: LIDOCAINE 4% PATCH TP SCH (17:32)
[2024-04-08] MEDS: LIDOCAINE PATCH REMOVAL MC SCH (21:39)
[2024-04-08] MEDS: MELATONIN 5 MG TABLETS PO SCH (21:39)
[2024-04-08] MEDS: HYDROCORTISONE 1% TOPICAL CREAM 30 GM TUBE TP PRN (21:40)
[2024-04-09] MEDS: ACETAMINOPHEN 325 MG TABLET (FP) PO PRN (21:23)
[2024-04-12] MEDS: hydrOXYzine PAMOATE 25 MG CAPSULE (FP) PO PRN (09:41)
[2024-04-14] MEDS: ACETAMINOPHEN 325 MG TABLET (FP) PO PRN (21:06)
[2024-04-14] MEDS: IBUPROFEN 600 MG TABLET (FP) PO PRN (21:07)
[2024-04-15] MEDS: LOPERAMIDE HCL 2 MG CAPSULE PO PRN (21:19)
[2024-04-20] MEDS ORDERED: methaDONE HCL 10 MG TABLET PO ONE (16:10)
[2024-04-20] MEDS ORDERED: LIDOCAINE 4% PATCH TP PRN (16:13)
[2024-04-20] MEDS: methaDONE HCL 10 MG TABLET PO ONE (17:46)
[2024-04-20] MEDS ORDERED: methaDONE HCL 10 MG TABLET PO SCH (18:00)
[2024-04-20] MEDS ORDERED: methaDONE 40 MG, methaDONE 10 MG PO SCH (18:00)
[2024-04-20] MEDS: TOLNAFTATE 1% CREAM 15 GM TUBE TP SCH (21:29)
[2024-04-21] MEDS: methaDONE 40 MG, methaDONE 10 MG PO SCH (06:16)
[2024-04-28] MEDS: SUVOREXANT 10 MG TABLET PO PRN (21:24)
[2024-04-29] MEDS ORDERED: methaDONE HCL 10 MG TABLET ONE (18:57)
[2024-04-29] MEDS: SUVOREXANT 10 MG TABLET PO PRN (21:21)
[2024-05-02 07:19] VITALS: RESP 18; TEMP 96.9
[2024-05-02] MEDS ORDERED: methaDONE HCL 10 MG TABLET PO SCH (08:30)
[2024-05-02] MEDS: methaDONE 80 MG, methaDONE 20 MG PO SCH (08:32)
[2024-05-02 09:15] VITALS: BP 123/75; PULSE 69
== END 2024-05-02 09:01 | disposition home or self-care (01) | DRG 772 ==
LOC: YASAS 13:17 → Y3E 17:06
PROVIDERS: ADMIT Allergy & Immunology; ATTEND Psychiatry & Neurology Pain Medicine
PROC: HZ42ZZZ Group Counseling for Substance Abuse Treatment, Cognitive-Behavioral (ICD-10-PCS; principal; 2024-04-07)
DX: F11.20 Opioid dependence, uncomplicated (principal); F25.9 Schizoaffective disorder, unspecified; F19.282 Other psychoactive substance dependence with psychoactive substance-induced sleep disorder; F31.9 Bipolar disorder, unspecified; F41.9 Anxiety disorder, unspecified; F60.9 Personality disorder, unspecified; E72.20 Disorder of urea cycle metabolism, unspecified; I10 Essential (primary) hypertension; J45.909 Unspecified asthma, uncomplicated; B35.3 Tinea pedis; Z87.891 Personal history of nicotine dependence; Z99.89 Dependence on other enabling machines and devices; S82.002D Unspecified fracture of left patella, subsequent encounter for closed fracture with routine healing; W10.9XXD Fall (on) (from) unspecified stairs and steps, subsequent encounter
CPT/HCPCS: 36415; 80053; 80305; 80307; 81003; 85027; 86780; 87811

== ENCOUNTER 2024-10-05 12:26 | Inpatient (IN) | payer OTHER ==
[2024-10-05 13:56] VITALS: BMI 21.2
[2024-10-05] MEDS ORDERED: BENZONATATE 200 MG CAPSULE PO PRN (14:57)
[2024-10-05] MEDS ORDERED: NALOXONE (NARCAN) HCL 4 MG/0.1 ML SPRAY NS PRN (14:57)
[2024-10-05] MEDS ORDERED: MAGNESIUM HYDROX 2400MG/30ML ORAL SUSPENSION 30 ML CUP PO PRN (14:57)
[2024-10-05] MEDS ORDERED: POLYETHYLENE GLYCOL (HEALTHYLAX) 3350 17 GM PACKET PO PRN (14:57)
[2024-10-05] MEDS ORDERED: LOPERAMIDE HCL 2 MG CAPSULE PO PRN (14:57)
[2024-10-05] MEDS ORDERED: BENZOCAINE/MENTHOL (CHLORASEPTIC ) LOZENGE MM PRN (14:57)
[2024-10-05] MEDS ORDERED: MAG HYDROX/AL HYDROX/SIMETH 30 ML UNIT-DOSE CUP PO PRN (14:57)
[2024-10-05] MEDS ORDERED: guaiFENesin 600 MG TABLET.ER (FP) PO PRN (14:57)
[2024-10-05] MEDS: hydrOXYzine PAMOATE 25 MG CAPSULE (FP) PO PRN (16:03)
[2024-10-05] MEDS ORDERED: hydrOXYzine PAMOATE 25 MG CAPSULE (FP) PO ONE (16:13)
[2024-10-05] MEDS ORDERED: ALBUTEROL SO4 HFA INHALER IH PRN (17:52)
[2024-10-05] MEDS: amLODIPine BESYLATE 5 MG TABLET (FP) PO SCH (18:00)
[2024-10-05 20:07] LABS: PH,URINE 5.5 (5.0-8.0); URINE APPEARANCE CLEAR; URINE BILIRUBIN NEGATIVE (NEGATIVE); URINE COLOR YELLOW; URINE GLUCOSE (UA) NEGATIVE (NEGATIVE); URINE KETONE TRACE (NEGATIVE); URINE LEUK ESTERASE NEGATIVE (NEGATIVE); URINE NITRITE NEGATIVE (NEGATIVE); URINE PROTEIN NEGATIVE (NEGATIVE)
[2024-10-05] MEDS: MELATONIN 5 MG TABLETS PO SCH (22:22)
[2024-10-05] MEDS: THIAMINE 100 MG TABLET PO SCH (22:22)
[2024-10-06] MEDS: BACLOFEN 10 MG TABLET (FP) PO PRN (03:06)
[2024-10-06] MEDS: ACETAMINOPHEN 325 MG TABLET (FP) PO PRN (03:06)
[2024-10-06] MEDS ORDERED: methaDONE HCL 40 MG DISPERSABLE TABLET PO SCH (09:00)
[2024-10-06] MEDS: PRENATAL VITAMINS W/ FOLIC ACID TABLET (FP) PO SCH (09:19)
[2024-10-06] MEDS: FLUTICASONE PROP 0.05% 16 GM NASAL SPRAY NS PRN (21:54)
[2024-10-07 11:29] LABS: POTASSIUM 3.6 mmol/L (3.5-5.1)
[2024-10-07 11:35] LABS: ALBUMIN 3.3 g/dl (3.4-5.0)
[2024-10-07 11:38] LABS: BLOOD UREA NITROGEN 9.6 mg/dL (7-18); CREATININE 0.6 mg/dL (0.55-1.3)
[2024-10-07 11:40] LABS: BILIRUBIN,TOTAL 0.5 mg/dL (0.2-1); TOT PROT 6.1 g/dl (6.4-8.2)
[2024-10-07 12:06] LABS: HEMATOCRIT 38.3 % (35.4-49); HEMOGLOBIN 12.7 GM/dL (11.7-16.9); MCH 30.1 pg (25.7-33.7); MCHC 33.1 g/dl (32.0-35.9); MEAN PLT VOLUME 9.3 fl (7.5-11.1); PLATELET COUNT 181 10^3/uL (134-434); RBC 4.21 M/mm3 (4.00-5.60); RDW 15.4 % (11.9-15.9); WHITE BLOOD COUNT 5.9 K/mm3 (4.0-10.0)
[2024-10-07] MEDS ORDERED: TUBERCULIN PPD 5 TU/0.1ML VIAL ID ONE (17:49)
[2024-10-10] MEDS: PETROLATUM, WHITE 30 GM TUBE TP SCH (12:40)
[2024-10-10] MEDS: SODIUM CHLORIDE NASAL SPRAY 44 ML BOTTLE NS PRN (21:16)
[2024-10-10] MEDS: BACLOFEN 10 MG TABLET (FP) PO SCH (21:17)
[2024-10-11] MEDS ORDERED: amLODIPine BESYLATE 5 MG TABLET (FP) PO SCH (10:00)
[2024-10-11 17:01] LABS: INR 0.91 (0.83-1.09); PROTHROMBIN TIME (PATIENT) 10.5 SEC (9.7-13.0)
[2024-10-13] MEDS: LACTULOSE 20 GM/30 ML UDC (FOR ORAL USE ONLY) PO SCH (09:51)
[2024-10-21] MEDS: CLINDAMYCIN PHOSPHATE 1% TOPICAL GEL 30 GM TUBE TP SCH (21:06)
[2024-10-25] MEDS: ACETAMINOPHEN 325 MG TABLET (FP) PO ONE (02:05)
[2024-10-27] MEDS ORDERED: DOCUSATE SODIUM 100 MG CAPSULE (FP) PO PRN (10:32)
[2024-10-27] MEDS: MELATONIN 5 MG TABLETS PO SCH (21:49)
[2024-10-31 07:03] VITALS: RESP 16; TEMP 97.3
[2024-10-31] MEDS: NALOXONE (NYS OPIOID OVERDOSE PROGRAM) 4 MG/0.1 ML SPRAY NS SCH (10:54)
[2024-10-31 11:08] VITALS: BP 147/88; PULSE 68
== END 2024-10-31 10:05 | disposition home or self-care (01) | DRG 895 ==
LOC: YASAS 12:26 → Y3NR 16:32 → Y5N 10-07 11:38
PROVIDERS: ADMIT Psychiatry & Neurology Pain Medicine; ATTEND Family Medicine Addiction Medicine
PROC: HZ42ZZZ Group Counseling for Substance Abuse Treatment, Cognitive-Behavioral (ICD-10-PCS; principal; 2024-10-05)
DX: F11.20 Opioid dependence, uncomplicated (principal); F14.20 Cocaine dependence, uncomplicated; F19.282 Other psychoactive substance dependence with psychoactive substance-induced sleep disorder; E72.20 Disorder of urea cycle metabolism, unspecified; F17.210 Nicotine dependence, cigarettes, uncomplicated; F20.9 Schizophrenia, unspecified; F31.9 Bipolar disorder, unspecified; F41.9 Anxiety disorder, unspecified; F60.9 Personality disorder, unspecified; I10 Essential (primary) hypertension; J45.20 Mild intermittent asthma, uncomplicated; G89.29 Other chronic pain; K59.00 Constipation, unspecified; M25.562 Pain in left knee; R42 Dizziness and giddiness; Z99.89 Dependence on other enabling machines and devices
CPT/HCPCS: 36415; 71046-TC-FY; 80053; 80305; 81003; 82140; 82652; 83735; 85027; 85610; 87811; 93005; 93010; J0475